=== PATIENT | female | born 1975 | race Two or more races ===

== ENCOUNTER 2016-12-20 22:50 | Emergency (ER) | payer MEDICAID ==
[~2016-12-20] VITALS: Ht 167.6 cm; Wt 72.6 kg
[~2016-12-20 22:50] MED LIST: BENA40TA2 PO; INSU100V28 SQ; INSU3INS6 SUBCUT
[2016-12-20] MEDS ORDERED: CLONIDINE HCL 0.1 MG TABLET ONE (23:06)
[2016-12-20 23:27] LABS: BASOPHILS # (AUTO) 0.1 /CMM (0.0-0.2); BASOPHILS % (AUTO) 0.3 % (0.0-2.0); HEMATOCRIT 48 % (33-45); HEMOGLOBIN 16.4 g/dL (11.5-14.8); LYMPHOCYTES % (AUTO) 5.7 % (20.0-44.0); MEAN CORPUSCULAR HEMOGLOBIN 31 PG (26.0-33.0); MEAN CORPUSCULAR HGB CONC 34 g/dl (31.0-36.0); MEAN CORPUSCULAR VOLUME 92 fL (82-100); MONOCYTES # (AUTO) 2.2 /CMM (0.1-1.30); MONOCYTES % (AUTO) 12.6 % (2.0-12.0); NEUTROPHILS # (AUTO) 14.1 /CMM (1.8-8.9); NEUTROPHILS % (AUTO) 81.4 % (43.0-81.0); PLATELET COUNT (AUTO) 236 /CMM (150-450); RDW COEFFICIENT OF VARIATION 13.6 (11.5-15.0); WHITE BLOOD COUNT (AUTO) 17.3 K/uL (4.3-11.0)
[2016-12-20 23:30] LABS: APPEARANCE,URINE SL CLOUDY (CLEAR); BILIRUBIN,URINE NEGATIVE (NEGATIVE); BLOOD, URINE 3+ Ery/uL (NEGATIVE); COLOR,URINE YELLOW (YELLOW); KETONES,URINE 3+ (NEGATIVE); LEUKOCYTE ESTERASE ,URINE NEGATIVE (NEGATIVE); NITRITE, URINE NEGATIVE (NEGATIVE); PROTEIN,URINE 2+ mg/dl (NEGATIVE); UGLUCOSE 3+ mg/dL (NEGATIVE); UROBILINOGEN,URINE 0.2 EU/dL (0.2)
[2016-12-20] MEDS ORDERED: CLONIDINE HCL 0.1 MG TABLET PO ONE (23:30)
[2016-12-20 23:37] LABS: BACTERIA,URINE 1+ /HPF (None Seen); CALCIUM, SERUM 8.5 mg/dL (8.5-10.1); CREATININE 0.7 mg/dL (0.6-1.3); SQUAMOUS EPITHELIAL CELL,UR Few /HPF (None Seen); WBC,URINE 25-35 /HPF (0-3)
[2016-12-20 23:42] LABS: POTASSIUM 2.8 mmol/L (3.5-5.1)
[2016-12-20 23:53] LABS: ALBUMIN 2.3 g/dL (3.4-5.0); BILIRUBIN,DIRECT 0.1 mg/dL (0.0-0.2); BILIRUBIN,TOTAL 0.6 mg/dL (0.2-1.0); TOTAL PROTEIN, SERUM 7.3 g/dL (6.4-8.2)
[2016-12-21] MEDS ORDERED: POTASSIUM CHLORIDE 20 MEQ POWDER PACKET PO ONE
[2016-12-21] MEDS ORDERED: CEFTRIAXONE 1 G VIAL IM ONE
[2016-12-21 00:21] VITALS: BP 163/105
[2016-12-21] MEDS ORDERED: CEFTRIAXONE 1 G VIAL ONE (00:28)
[2016-12-21] MEDS ORDERED: LIDOCAINE /MPF 1% VIAL 5 ML VIAL ONE (00:28)
[2016-12-21] MEDS ORDERED: POTASSIUM CHLORIDE 20 MEQ TAB.PRT.SR PO ONE (00:28)
== END 2016-12-21 00:42 | disposition home or self-care (01) ==
LOC: ER 22:56
DX: I10 Essential (primary) hypertension (principal); E11.65 Type 2 diabetes mellitus with hyperglycemia; N39.0 Urinary tract infection, site not specified; Z79.4 Long term (current) use of insulin
CPT/HCPCS: 36415; 80048; 80076; 81001; 85025; 96372; 99284; A4606; J0696; J3490; Z7610; 81000-TC